=== PATIENT | male | born 1975 | race Caucasian/White ===

== ENCOUNTER 2022-01-14 11:07 | Outpatient (CLI) | payer BC ==
[2022-01-14 12:45] LABS: #Eosinphils 0.2 10x3/uL (0.0-0.5); #Monocytes 0.5 10x3/uL (0.0-1.1); #Neutrophils 4.5 10x3/uL (1.5-8.4); %Basophils 0.5 % (0.0-2.0); %Lymphocytes 30.1 % (18.0-47.0); %Monocytes 7.2 % (0.0-10.0); %Neutrophils 60.1 % (40.0-75.0); Hemoglobin 15.5 g/dL (13.5-17.5); Mean Corpuscular HGB CONC 35.3 g/dL (32.0-36.0); Mean Corpuscular Hemoglobin 32.2 pg (27.0-33.0); Mean Corpuscular Volume 91.3 fl (81.2-95.1); Platelet Count 246 10x3/uL (150-450); Red Blood Cell (RBC) Count 4.81 10x6/uL (4.32-5.72); White Blood Cell (WBC) Count 7.5 10x3/uL (3.5-10.5)
[2022-01-14 12:52] LABS: INR-International Normal Ratio 0.9; Prothrombin Time 9.7 sec (9.5-12.1)
[2022-01-14 13:13] LABS: Anion Gap 16 mmol/L (10-20); BUN (Urea Nitrogen) 19 mg/dL (8.9-20.6); Calc. Creatinine Clearance 0 mL/min (70-130); Calcium 9.9 mg/dL (7.8-10.44); Carbon Dioxide 25 mmol/L (22-29); Chloride 105 mmol/L (98-107); Estimated GFR 97; Glucose 87 mg/dL (70-105); Potassium 4.8 mmol/L (3.5-5.1); Sodium 141 mmol/L (136-145)
== END 2022-01-14 11:08 | disposition home or self-care (01) ==
LOC: LABBT 11:07
PROVIDERS: ATTEND Orthopaedic Surgery
DX: Z01.818 Encounter for other preprocedural examination (principal); M16.11 Unilateral primary osteoarthritis, right hip; Z20.822 Contact with and (suspected) exposure to COVID-19
CPT/HCPCS: 80048; 85025; 85610; 87081; 87811; 93005; 93010

== ENCOUNTER 2022-01-19 05:30 | Inpatient (IN) | payer BC ==
[2022-01-15 14:45] VITALS: BMI 25.4
[2022-01-19] MEDS ORDERED: Sodium Chloride 0.9% 100 ML ONE ×2 (06:02→06:52)
[2022-01-19] MEDS ORDERED: Tranexamic Acid 1,000 MG/10 ML VIAL ONE (06:02)
[2022-01-19] MEDS ORDERED: Vancomycin 1.5 GRAM/300 ML BAG 1.5 GM in Premix Bag 1 BAG IVPB SCH ×3 (06:15→13:00)
[2022-01-19] MEDS ORDERED: fentaNYL Citrate/PF 100 MCG/2 ML SYRINGE ONE ×3 (06:22→10:44)
[2022-01-19] MEDS ORDERED: Bupivacaine 0.25% HCL 30 ML VIAL ONE (06:22)
[2022-01-19] MEDS ORDERED: Vancomycin (BATCH) 1.5 GRAM/300 ML BAG ONE (06:39)
[2022-01-19] MEDS ORDERED: Bupivacaine PF 0.5% 30 ML VIAL ONE (06:47)
[2022-01-19] MEDS ORDERED: CEFAZOLIN 2 GM VIAL ONE (06:52)
[2022-01-19] MEDS ORDERED: Metoprolol Tartrate 5 MG/5 ML VIAL ONE (06:55)
[2022-01-19] MEDS ORDERED: Glycopyrrolate 0.2 MG/ML 5 ML SYRINGE ONE (06:55)
[2022-01-19] MEDS ORDERED: Dexamethasone 20 MG/5 ML VIAL ONE (06:55)
[2022-01-19] MEDS ORDERED: Ondansetron PF 4 MG/2 ML Vial ONE (06:55)
[2022-01-19] MEDS ORDERED: Rocuronium Bromide 10 MG/ML (10ML VIAL) ONE (06:55)
[2022-01-19] MEDS ORDERED: Lidocaine 1% PF 5 ML VIAL ONE (06:55)
[2022-01-19] MEDS ORDERED: ePHEDrine 50 MG/ML VIAL ONE (06:55)
[2022-01-19] MEDS ORDERED: Midazolam HCl 2 mg/2 ml Vial ONE (06:55)
[2022-01-19] MEDS ORDERED: PROPOFOL 200 MG/20 ML VIAL ONE (06:55)
[2022-01-19] MEDS ORDERED: Promethazine HCl 25 MG/ML VIAL IVPB PRN (09:40)
[2022-01-19] MEDS ORDERED: Ondansetron HCl/PF 4 MG/2 ML Vial IVP PRN (09:40)
[2022-01-19] MEDS ORDERED: Promethazine HCl 25 MG/ML VIAL IM PRN ×2 (09:40→09:55)
[2022-01-19] MEDS ORDERED: Promethazine HCl 25 MG/ML VIAL ONE (09:51)
[2022-01-19] MEDS ORDERED: Acetaminophen 325 MG TAB PO PRN (09:55)
[2022-01-19] MEDS ORDERED: Zolpidem Tartrate 5 MG TAB PO PRN (09:55)
[2022-01-19] MEDS ORDERED: Ondansetron PF 4 MG/2 ML Vial IVP PRN (09:55)
[2022-01-19] MEDS ORDERED: diphenhydrAMINE 25 MG CAP PO PRN (09:55)
[2022-01-19] MEDS ORDERED: traMADol HCl 50 MG TAB PO PRN ×3 (11:37→12:45)
[2022-01-19] MEDS ORDERED: HYDROcodone/Acetaminophen 10/325 mg Tablet PO PRN ×3 (11:37→12:45)
[2022-01-19] MEDS ORDERED: Morphine 2 MG/ML VIAL SLOW IVP PRN (11:38)
[2022-01-19] MEDS: CEFAZOLIN 2 GM in Sodium Chloride 0.9% 100 ML IVPB SCH ×2 (11:43→17:37)
[2022-01-19] MEDS ORDERED: Morphine 2 MG/ML VIAL SLOW IVP SCH (11:45)
[2022-01-19] MEDS: Sodium Chloride 0.9% 1,000 ML IV SCH ×2 (11:50→21:53)
[2022-01-19] MEDS ORDERED: Naloxone HCl 0.4 mg/ml Vial IV PRN (17:30)
[2022-01-19] MEDS ORDERED: Morphine Sulfate 100 MG in Dextrose 5% in Water 98 ML IV SCH (17:30)
[2022-01-19] MEDS: Senokot S 8.6-50 MG TAB PO SCH (21:53)
[2022-01-19] MEDS: Ferrous Gluconate 324 MG TAB PO SCH (21:53)
[2022-01-20] MEDS: Sodium Chloride 0.9% 1,000 ML IV SCH ×2 (03:54→14:16)
[2022-01-20] MEDS: Ondansetron PF 4 MG/2 ML Vial IVP PRN ×2 (03:57→16:21)
[2022-01-20 05:40] LABS: Hemoglobin 12.9 g/dL (14.0-18.0); Mean Corpuscular HGB CONC 34.3 g/dL (32.0-36.0); Mean Corpuscular Hemoglobin 33.1 pg (27.0-31.0); Mean Corpuscular Volume 96.5 fL (78.0-98.0); Mean Platelet Volume 6.3 fL (7.4-10.4); Platelet Count 252 thou/uL (130-400); RBC Distribution Width 11.6 % (11.5-14.5); Red Blood Cell (RBC) Count 3.88 mill/uL (4.70-6.10); White Blood Cell (WBC) Count 14.1 thou/uL (4.8-10.8)
[2022-01-20] MEDS: Apixaban 5 MG TAB PO SCH ×2 (09:28→21:07)
[2022-01-20] MEDS: Multivitamin W/ Minerals 1 TAB PO SCH (09:28)
[2022-01-20] MEDS: Senokot S 8.6-50 MG TAB PO SCH ×2 (09:31→21:07)
[2022-01-20] MEDS: Ferrous Gluconate 324 MG TAB PO SCH ×2 (09:31→21:07)
[2022-01-20] MEDS: Acetaminophen 500 MG TAB PO SCH ×3 (10:25→21:08)
[2022-01-20] MEDS: tiZANidine HCl 4 MG TAB PO SCH ×3 (10:25→23:48)
[2022-01-20] MEDS: Ketorolac Tromethamine 30 MG/ML VIAL IVP SCH ×3 (10:26→21:08)
[2022-01-20] MEDS ORDERED: HYDROmorphone/PF 10 MG in Sodium Chloride 0.9% 95 ML IVPB PRN (12:15)
[2022-01-21] MEDS: Sodium Chloride 0.9% 1,000 ML IV SCH ×3 (04:11→23:01)
[2022-01-21] MEDS: Ketorolac Tromethamine 30 MG/ML VIAL IVP SCH ×4 (05:28→21:00)
[2022-01-21] MEDS: Acetaminophen 500 MG TAB PO SCH ×2 (05:28→09:36)
[2022-01-21] MEDS: tiZANidine HCl 4 MG TAB PO SCH ×4 (05:28→23:00)
[2022-01-21 07:37] LABS: Mean Corpuscular HGB CONC 34.2 g/dL (32.0-36.0); Mean Corpuscular Hemoglobin 33.1 pg (27.0-31.0); Mean Corpuscular Volume 96.8 fL (78.0-98.0); Mean Platelet Volume 6.3 fL (7.4-10.4); Platelet Count 144 thou/uL (130-400); RBC Distribution Width 11.5 % (11.5-14.5); Red Blood Cell (RBC) Count 3.03 mill/uL (4.70-6.10); White Blood Cell (WBC) Count 8.4 thou/uL (4.8-10.8)
[2022-01-21] MEDS: Apixaban 5 MG TAB PO SCH ×2 (09:33→21:00)
[2022-01-21] MEDS: Ferrous Gluconate 324 MG TAB PO SCH ×2 (09:33→21:01)
[2022-01-21] MEDS: Senokot S 8.6-50 MG TAB PO SCH ×2 (09:34→21:04)
[2022-01-21] MEDS: Multivitamin W/ Minerals 1 TAB PO SCH (09:37)
[2022-01-21] MEDS ORDERED: Fentanyl 100 MCG/2 ML VIAL SLOW IVP PRN (12:57)
[2022-01-21] MEDS ORDERED: traMADol HCl 50 MG TAB PO PRN (12:57)
[2022-01-21] MEDS: HYDROcodone/Acetaminophen 10/325 mg Tablet PO PRN ×2 (14:23→19:39)
[2022-01-22] MEDS: HYDROcodone/Acetaminophen 10/325 mg Tablet PO PRN ×2 (00:25→07:53)
[2022-01-22] MEDS: Ketorolac Tromethamine 30 MG/ML VIAL IVP SCH ×2 (03:15→10:28)
[2022-01-22] MEDS: Ondansetron PF 4 MG/2 ML Vial IVP PRN (03:15)
[2022-01-22 05:30] LABS: Hemoglobin 9.5 g/dL (14.0-18.0); Mean Corpuscular HGB CONC 34.2 g/dL (32.0-36.0); Mean Corpuscular Hemoglobin 33.8 pg (27.0-31.0); Mean Corpuscular Volume 98.8 fL (78.0-98.0); Platelet Count 155 thou/uL (130-400); RBC Distribution Width 11.5 % (11.5-14.5); White Blood Cell (WBC) Count 7.4 thou/uL (4.8-10.8)
[2022-01-22] MEDS: tiZANidine HCl 4 MG TAB PO SCH (07:17)
[2022-01-22] MEDS: Sodium Chloride 0.9% 1,000 ML IV SCH (07:52)
[2022-01-22] MEDS: Multivitamin W/ Minerals 1 TAB PO SCH (07:52)
[2022-01-22] MEDS: Ferrous Gluconate 324 MG TAB PO SCH (07:52)
[2022-01-22] MEDS: Apixaban 5 MG TAB PO SCH (07:52)
[2022-01-22] MEDS: Senokot S 8.6-50 MG TAB PO SCH (07:53)
[2022-01-22 08:59] VITALS: BP 114/65; TEMP 98.6
== END 2022-01-22 11:35 | disposition home or self-care (01) | DRG 470 ==
LOC: SDC 05:30 → SURG B 09:55 → EDSTATUS 10:45 → EDSEX 10:45 → SURG B 11:20 → SDC 11:20 → OBSVTOIN 01-21 13:40
PROVIDERS: ADMIT Orthopaedic Surgery; ATTEND Orthopaedic Surgery
PROC: 0SR904Z Replacement of Right Hip Joint with Ceramic on Polyethylene Synthetic Substitute, Open Approach (ICD-10-PCS; principal; 2022-01-19)
DX: M16.51 Unilateral post-traumatic osteoarthritis, right hip (principal); M87.051 Idiopathic aseptic necrosis of right femur; Z20.822 Contact with and (suspected) exposure to COVID-19; Z60.2 Problems related to living alone; C43.59 Malignant melanoma of other part of trunk; Z86.711 Personal history of pulmonary embolism
CPT/HCPCS: 36415; 72170; 77014; 77290; 77307; 77334; 77412; 77417; 85027; 96374; 96375; 96376; C1776; G0378; J0690; J1100; J1170; J1885; J2250; J2270; J2405; J2550; J2704; J2710; J3370; J3490; J7050; J7070; S0020

== ENCOUNTER 2022-01-25 10:34 | Emergency (ER) | payer BC | END 2022-01-25 12:27 | disposition home or self-care (01) | LOC: ERS 10:34 | DX: M79.661 Pain in right lower leg (principal) ==